=== PATIENT | male | born 1995 | race Caucasian/White ===

== ENCOUNTER 2019-01-08 22:04 | Emergency (ER) | payer OTHER ==
[2019-01-08 23:29] LABS: HEMATOCRIT 46.6 % (42.0-52.0); HEMOGLOBIN 16.6 g/dl (13.5-17.5); MEAN CORPUSCULAR HEMOGLOBIN 31.3 pg (27.0-33.0); MEAN CORPUSCULAR HGB CONC 35.6 g/dl (32.0-36.5); MEAN CORPUSCULAR VOLUME 87.9 fl (80.0-96.0); PLATELET COUNT, AUTOMATED 264 10^3/uL (150-450)
[2019-01-08 23:56] LABS: AMPHETAMINES LEVEL URINE NEGATIVE (NEGATIVE); BARBITURATES URINE NEGATIVE (NEGATIVE); BENZODIAZEPINES URINE NEGATIVE (NEGATIVE); CANNABINOIDS URINE NEGATIVE (NEGATIVE); COCAINE METABOLITE URINE NEGATIVE (NEGATIVE); METHADONE URINE NEGATIVE (NEGATIVE); OPIATES URINE NEGATIVE (NEGATIVE); PHENCYCLIDINE URINE NEGATIVE (NEGATIVE)
[2019-01-09 00:06] LABS: ACETAMINOPHEN LEVEL < 2.0 UG/ML (10.0-30.0); ALBUMIN 4.1 GM/DL (3.2-5.2); ALT/SGPT 15 U/L (12-78); BILIRUBIN,DIRECT 0.1 MG/DL (0.0-0.2); BILIRUBIN,TOTAL 0.3 MG/DL (0.2-1.0); BLOOD UREA NITROGEN 10 MG/DL (7-18); CALCIUM LEVEL 8.6 MG/DL (8.5-10.1); CARBON DIOXIDE LEVEL 27 MEQ/L (21-32); CHLORIDE LEVEL 108 MEQ/L (98-107); CREATININE FOR GFR 0.99 MG/DL (0.70-1.30); ETHYL ALCOHOL (ETHANOL) 0.139 % (0.000-0.010); GLOMERULAR FILTRATION RATE > 60.0 (>60); GLUCOSE, FASTING 98 MG/DL (70-100); POTASSIUM SERUM 4.3 MEQ/L (3.5-5.1); SALICYLATE LEVEL < 1.7 MG/DL (5.0-30.0); SODIUM LEVEL 145 MEQ/L (136-145); TOTAL PROTEIN 7.4 GM/DL (6.4-8.2)
[2019-01-09 02:19] VITALS: BP 127/70
== END 2019-01-09 03:30 | disposition home or self-care (01) ==
LOC: M ED 22:04
DX: F32.9 Major depressive disorder, single episode, unspecified (principal); F17.200 Nicotine dependence, unspecified, uncomplicated
CPT/HCPCS: 36415; 80048; 80076; 80307; 84443; 85027; 99284; G0480

== ENCOUNTER 2020-08-03 19:53 | Emergency (ER) | payer OTHER ==
[~2020-08-03] VITALS: Ht 172.7 cm; Wt 76.9 kg
--- OUTSIDE RECORDS SUMMARY | 2020-08-03 21:15 | CCD ---
Author Author [facility] Address Unknown Phone Unavailable Support Name Relationship Address Phone [facility] Next Of Kin [address] [place] [address] Unavailable DELFINA LAINEZ Next Of Kin [place], [place] [id number] Re-disclosure Warning The records that you are about to access may contain information from federally-assisted alcohol or drug abuse programs. If such information is present, then the following federally mandated warning applies: This information has been disclosed to you from records protected by federal confidentiality rules (42 CFR part 2). The federal rules prohibit you from making any further disclosure of this information unless further disclosure is expressly permitted by the written consent of the person to whom it pertains or as otherwise permitted by 42 CFR part 2. A general authorization for the release of medical or other information is NOT sufficient for this purpose. The Federal rules restrict any use of the information to criminally investigate or prosecute any alcohol or drug abuse patient.The records that you are about to access may contain highly sensitive health information, the redisclosure of which is protected by Article 27-F of the [facility] Public Health law. If you continue you may have access to information: Regarding HIV / AIDS; Provided by facilities licensed or operated by the [facility] Office of Mental Health; or Provided by the [facility] Office for People With Developmental Disabilities. If such information is present, then the following [facility] mandated warning applies: This information has been disclosed to you from confidential records which are protected by state law. State law prohibits you from making any further disclosure of this information without the specific written consent of the person to whom it pertains, or as otherwise permitted by law. Any unauthorized further disclosure in violation of state law may result in a fine or detention sentence or both. A general authorization for the release of medical or other information is NOT sufficient authorization for further disc losure. Insurance Providers Payer name Policy type / Coverage type Policy ID Covered democrat ID Covered democrat's relationship to knox Policy [place] Plan Information [facility] ACTIVE DUTY [id number]
--- OUTSIDE RECORDS SUMMARY | 2020-08-03 21:17 | CCD ---
Author Author [facility] Address Unknown Phone Unavailable Support Name Relationship Address Phone [facility] Next Of Kin [address] [place] [address] Unavailable DELFINA LAINEZ Next Of Kin [place], [place] [id number] Re-disclosure Warning The records that you are [...] is protected by Article 27-F of the [facility] Public Health law. If you continue you may have access to information: Regarding HIV / AIDS; Provided by facilities licensed or operated by the [facility] Office of Mental Health; or Provided by the [facility] Office for People With Developmental Disabilities. If such information is present, then the following [facility] mandated warning applies: This information has [...] law may result in a fine or custodial sentence or both. A general authorization for the release of medical or other information is NOT sufficient authorization for further disc losure. Insurance Providers Payer name Policy type / Coverage type Policy ID Covered alliance party ID Covered alliance party's relationship to knox Policy [place] Plan Information [facility] [employer] [id number]
[2020-08-03] MEDS ORDERED: ACETAMINOPHEN 325 MG TAB PO ONE (21:30)
--- NOTE | 2020-08-03 21:49 | REPVR ---
PROCEDURE INFORMATION: Exam: CT Head Without Contrast Exam date and time: 08/03/2020 9:10 PM Age: 24 years old Clinical indication: Pain; Headache; Additional info: Persistent headache 10 days TECHNIQUE: Imaging protocol: Computed tomography of the head without contrast. Radiation optimization: All CT scans at this facility use at least one of these dose optimization techniques: automated exposure control; mA and/or kV adjustment per patient size (includes targeted exams where dose is matched to clinical indication); or iterative reconstruction. COMPARISON: No relevant prior studies available. FINDINGS: Brain: Normal. No hemorrhage. Unremarkable white matter. No mass effect. Cerebral ventricles: No ventriculomegaly. Bones/joints: Unremarkable. No acute fracture. Paranasal sinuses: Visualized sinuses are unremarkable. No fluid levels. Mastoid air cells: Visualized mastoid air cells are well aerated. Soft tissues: Unremarkable. IMPRESSION: No acute intracranial abnormality. Electronically signed by: Eder Norwood On 08/03/2020 21:48:55 PM
[2020-08-03 22:05] VITALS: BP 141/80
== END 2020-08-03 22:09 | disposition home or self-care (01) ==
LOC: M ED 19:53
DX: R51.9 Headache, unspecified (principal); Z87.891 Personal history of nicotine dependence

== ENCOUNTER 2021-04-02 04:02 | Emergency (ER) | payer OTHER ==
[~2021-04-02] VITALS: Ht 172.7 cm; Wt 77.3 kg
[2021-04-02 04:16] VITALS: BP 155/88
== END 2021-04-02 05:10 | disposition left against medical advice (07) ==
LOC: M ED 04:02
DX: S09.90XA Unspecified injury of head, initial encounter (principal); Y04.0XXA Assault by unarmed brawl or fight, initial encounter; Y92.009 Unspecified place in unspecified non-institutional (private) residence as the place of occurrence of the external cause; Y93.89 Activity, other specified; Y99.8 Other external cause status; F17.210 Nicotine dependence, cigarettes, uncomplicated